=== PATIENT | male | born 1975 | race African-American/Black ===

== ENCOUNTER 2017-09-12 16:08 | Inpatient (IN) | payer BC ==
[~2017-09-12] VITALS: Ht 198.1 cm; Wt 102.5 kg
[2017-09-12 16:20] VITALS: BP 140/81
--- NOTE | 2017-09-12 16:25 | NUR ---
PT SENT TO LOBBY TO WAIT FOR BED/CHAIR
--- NOTE | 2017-09-12 16:55 | NUR ---
PATIENT AMB. TO BED#1
--- NOTE | 2017-09-12 17:05 | NUR ---
42 YO M BIB SELF W/ C/O RASH THAT GOT SEVERE Saturday09/07/17. PT IS VISITING FROM [place] FOR [place], ARRIVED Saturday09/04/17 AND HAS BEEN STAYING IN A HOTEL. PT REPORTS IT WAS DIAGNOSED FOOT AND MOUTH, BUT BLISTERS HAVE NOW OPENED AROUND NECK AND ARE "OOZING" AND HAS BEGAN GETTING "THE CHILLS". PT REPORTS HIS LEFT EAR IS NOW SWOLLEN OF THIS MORNING AND HE HAS ALSO NOTED BLISTERS/THE RASH IN HIS MOUTH AND THROAT. PT DENIES PAIN AT THIS TIME. PT A&O X 4. GCS 15. CMS INTACT. RESPIRATIONS EVEN AND UNLABORED AT THIS TIME. LUNG SOUNDS CLEAR BILATERALLY. PT DENIES SOB. ABD SOFT, NON-TENDER. BOWEL SOUNDS ACTIVE X 4 QUADS. GI AND WITHIN NORMAL LIMITS PER PT. ER MD GILLETTE NOTIFIED OF PT STATUS. SAFETY PRECAUTIONS IN PLACE. PT NEEDS MET AT THIS TIME. WILL CONTINUE TO MONITOR.
--- NOTE | 2017-09-12 17:39 | NUR ---
REMINDED AGAIN ABOUT THE TEMP 101
[2017-09-12] MEDS ORDERED: DEXAMETHASONE 10 MG/ML VIAL IVP ONE (17:40)
[2017-09-12] MEDS ORDERED: FAMOTIDINE 20 MG/2 ML VIAL IVP ONE (17:40)
[2017-09-12] MEDS ORDERED: diphenhydrAMINE 50 MG/ML VIAL IVP ONE (17:40)
[2017-09-12] MEDS ORDERED: ONDANSETRON 4 MG/2 ML VIAL IVP ONE (17:40)
[2017-09-12] MEDS ORDERED: ACYCLOVIR 500 MG in NACL 0.9% 100 ML IV ONE (17:40)
[2017-09-12] MEDS ORDERED: ACYCLOVIR 500 MG VIAL IV ONE (18:02)
--- NOTE | 2017-09-12 18:22 | NUR ---
xray at bedside
[2017-09-12 18:31] LABS: BASOPHILS % (AUTO) 0.1 % (0.0-2.0); EOSINOPHILS # (AUTO) 0.5 K/uL (0-0.4); EOSINOPHILS % (AUTO) 5.5 % (0.0-4.0); HEMATOCRIT 50.6 % (36-52); HEMOGLOBIN 17.1 g/dL (12.0-18.0); LYMPHOCYTES # (AUTO) 0.9 K/uL (2.0-11.5); MEAN CORPUSCULAR HEMOGLOBIN 29 pg (27-31); MEAN CORPUSCULAR HGB CONC 34 g/dL (33-37); MONOCYTES # (AUTO) 0.7 K/uL (0.8-1.0); MONOCYTES % (AUTO) 7.3 % (1.7-9.3); NEUTROPHILS # (AUTO) 7.3 K/uL (1.8-7.7); NEUTROPHILS % (AUTO) 77.8 % (42.2-75.2); PLATELET COUNT (AUTO) 218 K/uL (140-450); RED BLOOD CELL COUNT(AUTO) 5.88 MIL/uL (4.20-6.10); RED CELL DISTRIBUTION WIDTH 13.4 % (11.6-13.7); WHITE BLOOD COUNT (AUTO) 9.3 K/uL (4.8-10.8)
--- NOTE | 2017-09-12 18:33 | NUR ---
PT AWARE NEED URINE FOR COLLECTION
[2017-09-12 18:42] LABS: LYMPHOCYTES % (AUTO) 9.3 % (20.5-51.1)
[2017-09-12] MEDS ORDERED: ACETAMINOPHEN 325 MG TAB ONE (18:56)
--- NOTE | 2017-09-12 18:58 | NUR ---
TALKED TO MADE AWARE HE WANTS TO TALK TO HIM AGAIN, REMINDED TEMP 101 WITH ORDER TYLENOL 650 NOW
[2017-09-12 19:00] LABS: ANION GAP 12.8 (8-16); CARBON DIOXIDE 29.5 mmol/L (21-32); CREATININE 1.6 mg/dL (0.7-1.3); POTASSIUM 4.3 mmol/L (3.5-5.1)
[2017-09-12] MEDS ORDERED: ACETAMINOPHEN 325 MG TAB PO ONE (19:00)
[2017-09-12 19:04] LABS: ALBUMIN 3.4 g/dL (3.4-5.0); TOTAL BILIRUBIN 0.7 mg/dL (0.0-1.0)
[2017-09-12 19:15] LABS: CREATINE KINASE MB 0.5 ng/mL (0-3.6)
[2017-09-12 19:25] LABS: PROTHROMBIN TIME 12.1 secs (10.8-13.4)
--- NOTE | 2017-09-12 19:25 | NUR ---
RECEIVED PT FROM ER VIA GURNEY,PT AMBULATED WITH STEADY GAIT.NO SOB NOTED ON ROOM AIR.PT ALERT AND ORIENTED X4.MED SURG.RASHES ALL OVER THE BODY NOTED W/SLIGHT DRAINAGE TO NECK AREA.ABD SOFT.NON DISTENDED.NO N/V.DENIES PAIN.
--- NOTE | 2017-09-12 19:25 | NUR ---
Patient will be admitted to care of CHAVO Last. Admited to [facility]. Will go to room ICU 5. Belongings list completed. Pt tolerated transition well.
[2017-09-12] MEDS ORDERED: ONDANSETRON 4 MG/2 ML VIAL IVP PRN (19:40)
[2017-09-12] MEDS ORDERED: LORazepam 2 MG/ML VIAL IVP PRN (19:40)
[2017-09-12] MEDS ORDERED: DEXT 5% /NACL 0.9% 1,000 ML IV SCH (19:40)
[2017-09-12] MEDS ORDERED: HYDROcodone/APAP 5/325 MG 1 TAB TAB PO PRN (19:40)
[2017-09-12] MEDS ORDERED: MORPHINE SULFATE 4 MG/ML SYR IVP PRN (19:40)
[2017-09-12] MEDS ORDERED: ACETAMINOPHEN 325 MG TAB PO PRN (19:40)
[2017-09-12 20:00] VITALS: BP 129/70
[2017-09-12] MEDS: ACYCLOVIR 500 MG in NACL 0.9% 100 ML IV SCH (21:00)
[2017-09-12 21:32] LABS: APPEARANCE,URINE CLEAR (CLEAR); BILIRUBIN,URINE 1+ (NEGATIVE); BLOOD, URINE NEGATIVE (NEGATIVE); COLOR,URINE YELLOW (YELLOW); LEUKOCYTE ESTERASE ,URINE NEGATIVE (NEGATIVE); NITRITE, URINE NEGATIVE (NEGATIVE); UGLUCOSE NEGATIVE (NEGATIVE)
[2017-09-12 21:43] LABS: RBC,URINE 0-5 (RARE) /HPF (0-5); WBC,URINE 0-5 (RARE) /HPF (0-5)
[2017-09-12] MEDS: methylPREDNISolone SS 40 MG/ML VIAL IVP SCH (21:48)
[2017-09-12] MEDS: DEXT 5% /NACL 0.9% 1,000 ML IV SCH (21:48)
--- NOTE | 2017-09-12 21:50 | NUR ---
PHONE CALL TO PHARMACY RE; ZOVIRAX 2100 DOSE;PT GIVEN ZOVIRAX FROM ER AT 1844; PHARMACIST SAID TO NOTIFY MD.PHONE CALL MADE TO DR KEYANA MD SAID NOT TO GIVE THE 2100 DOSE. ALSO PT WANTS TO TALK TO DR RIDLEY BEFORE HE WILL LET RN ADMINISTER MEDS; PHONE GIVEN TO PT.
[2017-09-13] VITALS: BP 131/69
[2017-09-13] MEDS ORDERED: diphenhydrAMINE 50 MG/ML VIAL IVP SCH
--- NOTE | 2017-09-13 | NUR ---
pt still awake.no sob noted.no c/o pain made.
[2017-09-13] MEDS ORDERED: ACYCLOVIR 500 MG VIAL IV ONE (01:50)
--- NOTE | 2017-09-13 02:00 | NUR ---
PT ASLEEP;TOLERATING ROOM AIR.NO SOB NOTED.NO S/SX OF PAIN NOTED.WILL CONTINUE TO MONITOR PT.
[2017-09-13 04:00] VITALS: BP 122/63
--- NOTE | 2017-09-13 04:10 | NUR ---
PTS CONDITION REMAINS UNCHANGED.NOT IN ANY DISTRESS.NO S/SX OF PAIN NOTED
[2017-09-13] MEDS: ACYCLOVIR 500 MG in NACL 0.9% 100 ML IV SCH ×2 (04:28→13:42)
[2017-09-13] MEDS: diphenhydrAMINE 50 MG/ML VIAL IVP PRN ×2 (04:35→12:26)
--- NOTE | 2017-09-13 04:35 | NUR ---
PT C/O ITCHINESS; BENADRYL GIVEN ORDERED.
[2017-09-13] MEDS: DEXT 5% /NACL 0.9% 1,000 ML IV SCH ×2 (05:40→15:40)
[2017-09-13 06:23] LABS: HEPATITIS A ANTIBODY IGM Negative (Negative); HEPATITIS B CORE AB TOTAL Negative (Negative); HEPATITIS B SURFACE ANTIBODY Non Reactive (.); HEPATITIS B SURFACE ANTIGEN Negative (Negative)
[2017-09-13 06:47] LABS: EOSINOPHILS # (AUTO) 0.4 K/uL (0-0.4); EOSINOPHILS % (AUTO) 3.7 % (0.0-4.0); HEMATOCRIT 45.4 % (36-52); HEMOGLOBIN 15.4 g/dL (12.0-18.0); LYMPHOCYTES # (AUTO) 0.7 K/uL (2.0-11.5); LYMPHOCYTES % (AUTO) 6.8 % (20.5-51.1); MEAN CORPUSCULAR HEMOGLOBIN 29 pg (27-31); MEAN CORPUSCULAR HGB CONC 34 g/dL (33-37); MEAN CORPUSCULAR VOLUME 86.3 fL (80-94); MONOCYTES # (AUTO) 0.3 K/uL (0.8-1.0); MONOCYTES % (AUTO) 3.4 % (1.7-9.3); NEUTROPHILS # (AUTO) 8.2 K/uL (1.8-7.7); NEUTROPHILS % (AUTO) 86.1 % (42.2-75.2); PLATELET COUNT (AUTO) 201 K/uL (140-450); RED BLOOD CELL COUNT(AUTO) 5.26 MIL/uL (4.20-6.10); RED CELL DISTRIBUTION WIDTH 13.5 % (11.6-13.7); WHITE BLOOD COUNT (AUTO) 9.6 K/uL (4.8-10.8)
[2017-09-13 08:00] VITALS: BP 138/79
[2017-09-13] MEDS: methylPREDNISolone SS 40 MG/ML VIAL IVP SCH (08:26)
[2017-09-13] MEDS: FAMOTIDINE 20 MG/2 ML VIAL IV SCH ×2 (08:26→21:21)
[2017-09-13 08:51] LABS: ALBUMIN 3.1 g/dL (3.4-5.0); ANION GAP 14.7 (8-16); CARBON DIOXIDE 25.7 mmol/L (21-32); CREATININE 1.5 mg/dL (0.7-1.3); POTASSIUM 4.4 mmol/L (3.5-5.1); TOTAL BILIRUBIN 0.5 mg/dL (0.0-1.0)
--- NOTE | 2017-09-13 09:40 | NUR ---
RECEIVED PT REPORT FROM ICU NURSE MELLO. PT IS AWAKE, ALERT, OX4. AMBULATORY. MED-SURG. CC:RASHES OVER ENTIRE BODY. PIC TAKEN IN ICU. IV NOTED TO THE LEFT AC, 20G, ASYMPTOMATIC, INFUSING WELL. VITALS SIGNS TAKEN. DENIES PAIN, NAUSEA AND VOMITING AT THIS TIME. ORIENTED PT TO THE ROOM. CALL LIGHT WITHIN REACH. WILL CONTINUE TO MONITOR.
--- NOTE | 2017-09-13 10:20 | NUR ---
PATIENT HAS BEEN SCREENED AND CATEGORIZED LOW NUTRITION RISK. PATIENT WILL BE SEEN WITHIN 7 DAYS OF ADMISSION. 09/19/[address]
--- NOTE | 2017-09-13 11:30 | NUR ---
DR KEYANA Vasquez HAS SEE THE PT.
--- NOTE | 2017-09-13 11:40 | NUR ---
TOOK PT TO SHOWER. IV HEPLOCKED AND COVERED WITH PLASTIC BAG.
--- NOTE | 2017-09-13 12:25 | NUR ---
PT CAME OUT OF SHOWER, REQUESTED BENADRYL BECAUSE OF ITCHING. WILL ADMINISTER.
[2017-09-13 12:30] VITALS: BP 104/75
--- NOTE | 2017-09-13 14:31 | NUR ---
CM NOTE PER OUTSOLE BEVELER TRINA, PATIENT HAS [facility], PENDING REF# [id number], AND TO SEND REVIEWS TO [phone] PH# [phone]. INITIAL REVIEW FAXED TO [facility] [phone], PENDING REF# [id number], PH# [phone].
--- NOTE | 2017-09-13 15:50 | NUR ---
DR REYES HAS SEEN THE PT. KIDNEY SPECIALIST.
[2017-09-13 16:00] VITALS: BP 130/66
--- NOTE | 2017-09-13 16:00 | NUR ---
VITALS TAKEN. NO S/S OF ACUTE DISTRESS.
--- NOTE | 2017-09-13 19:35 | NUR ---
ENDORSED PT TO NEEDLE POLISHER NURSE. PT IN STABLE CONDITION.
--- NOTE | 2017-09-13 19:36 | NUR ---
RECD. RESTING IN BED, AWAKE, A/OX4, RESPIRATION EVEN AND UNLABORED. NOTED RASHES ALL OVER THE BODY. NO ITCHINESS NOTED. IV OF D5NS AT 100 ML/HR INFUSING, LEFT AC G22. PLAN OF CARE FOR THE SHIFT DISCUSSED. VERBALIZED UNDERSTANDING. WAITING FOR DR. ROBERTO. DENIES PAIN 0/10.
[2017-09-13 20:00] VITALS: BP 126/83
--- NOTE | 2017-09-13 20:00 | NUR ---
Patient's Plan of Care was discussed and reviewed with BANANA EXPERT: BREANNA ROOT
--- NOTE | 2017-09-13 21:20 | NUR ---
DR. ROBERTO CAME AND SPOKE WITH PATIENT. DISCONTINUED ZOVIRAXM AND SOLU-MEDROL. ORDERED HIV TEST.
--- NOTE | 2017-09-13 23:00 | NUR ---
COMPLAINT OF FEELING OF HEAVINESS AT THE LEFT ARM, SEEMS GETTING BIGGER, CHECKED IV, STILL FLUSHING WELL. REQUESTED TO BE DISCONNECTED FOR A WHILE TO REST ARM.
[2017-09-14] VITALS: BP 107/53
--- NOTE | 2017-09-14 | NUR ---
SLEEPING COMFORTABLY IN BED.
[2017-09-14] MEDS: DEXT 5% /NACL 0.9% 1,000 ML IV SCH (01:40)
[2017-09-14 04:00] VITALS: BP 116/68
--- NOTE | 2017-09-14 06:25 | NUR ---
CONSENT SIGNED FOR HIV TEST. INFORM PRODUCT INSPECTION COORDINATOR SKIP, WILL COME BACK TO DO TEST.
--- NOTE | 2017-09-14 07:20 | NUR ---
SITTING IN BED, NO DISTRESS NOTED. CONDITION REMAIN STABLE. ENDORSED TO AM NURSES FOR CONTINUITY OF CARE.
--- NOTE | 2017-09-14 07:21 | NUR ---
RECEIVED REPORT FROM SUBSTATION ENGINEER NURSE BREANNA AT BEDSIDE FOR CONTINUITY OF CARE. PT IS AWAKE AND ORIENTED X4. INTRODUCED SELF AND UPDATED BOARD. PT IS SITTING IN BED WATCHING TV. DENIES PAIN. IV TO L AC 20G INTACT. NO SIGNS OF DISTRESS. BED IN LOW POSITION, WHEELS LOCKED, CALL LIGHT WITHIN REACH. WILL CONTINUE TO MONITOR.
[2017-09-14 07:36] LABS: BASOPHILS % (AUTO) 0.1 % (0.0-2.0); EOSINOPHILS # (AUTO) 0.9 K/uL (0-0.4); EOSINOPHILS % (AUTO) 6.4 % (0.0-4.0); HEMATOCRIT 39.2 % (36-52); LYMPHOCYTES % (AUTO) 7.1 % (20.5-51.1); MEAN CORPUSCULAR HEMOGLOBIN 29 pg (27-31); MEAN CORPUSCULAR HGB CONC 33 g/dL (33-37); MEAN CORPUSCULAR VOLUME 86.5 fL (80-94); MONOCYTES % (AUTO) 6.5 % (1.7-9.3); NEUTROPHILS # (AUTO) 11.7 K/uL (1.8-7.7); NEUTROPHILS % (AUTO) 79.9 % (42.2-75.2); PLATELET COUNT (AUTO) 185 K/uL (140-450); RED BLOOD CELL COUNT(AUTO) 4.54 MIL/uL (4.20-6.10); RED CELL DISTRIBUTION WIDTH 13.4 % (11.6-13.7); WHITE BLOOD COUNT (AUTO) 14.6 K/uL (4.8-10.8)
[2017-09-14 07:55] LABS: ANION GAP 11.6 (8-16); CARBON DIOXIDE 28.1 mmol/L (21-32); CREATININE 1.3 mg/dL (0.7-1.3); POTASSIUM 4.7 mmol/L (3.5-5.1)
[2017-09-14 08:00] VITALS: BP 137/72
[2017-09-14 08:01] LABS: MAGNESIUM 2.2 mg/dL (1.8-2.4); PHOSPHORUS 3.7 mg/dL (2.5-4.9)
[2017-09-14] MEDS: FAMOTIDINE 20 MG/2 ML VIAL IV SCH (09:37)
[2017-09-14] MEDS ORDERED: FAMO-90 PO (11:18)
[2017-09-14] MEDS ORDERED: BEN50 PO (11:18)
--- NOTE | 2017-09-14 13:07 | NUR ---
GAVE D/C FORMS,INSTRUCTIONS, LABS, DR'S NOTES, COPY OF TESTS, AND MEDICAL RECORDS NUMBER. PT VERBALIZED UNDERSTANDING AND SIGNED FORMS. D/C IV TO L AC 20G. IV CATHETER TIP INTACT. APPLIED DRESSING AND PRESSURE TO SITE. NO BLEEDING NOTED. REMOVED ID BAND.
--- NOTE | 2017-09-14 15:30 | NUR ---
PT D/C TO GO HOME. REMOVED ID BAND. PT CHANGED IN OWN CLOTHES AND LEFT WITH ALL PERSONAL BELONGINGS. LEFT UNIT VIA AMBULATION WITH STEADY GAIT ACCOMPANIED BY RN. LEFT IN STABLE CONDITION.
--- NOTE | 2017-09-16 15:04 | NUR ---
CM NOTE RECEIVED VM MESSAGE REGARDING PATIENT'S ADMISSION BUT CALLER DID NOT MENTION HER NAME REQUESTING A CALL BACK TO [facility] PH# [phone]. CALLED BACK THAT NUMBER AND LEFT A VM MESSAGE. DISCHARGE SUMMARY FAXED TO [facility] [phone] # [phone].
== END 2017-09-14 15:30 | disposition home or self-care (01) | DRG 607 ==
LOC: MED 16:08 → MIC 18:58 → MTU 09-13 07:39
PROVIDERS: ADMIT Preventive Medicine Preventive Medicine/Occupational Environmental Medicine; ATTEND Preventive Medicine Preventive Medicine/Occupational Environmental Medicine
DX: R21 Rash and other nonspecific skin eruption (principal); N17.9 Acute kidney failure, unspecified; D72.829 Elevated white blood cell count, unspecified; R50.9 Fever, unspecified; T78.40XA Allergy, unspecified, initial encounter; X58.XXXA Exposure to other specified factors, initial encounter; T38.0X5A Adverse effect of glucocorticoids and synthetic analogues, initial encounter; R79.1 Abnormal coagulation profile; Z88.0 Allergy status to penicillin; Y92.89 Other specified places as the place of occurrence of the external cause
CPT/HCPCS: 36415; 71045; 76770; 80048; 80053; 81001; 82150; 82550; 82553; 82785; 83605; 83690; 83735; 84100; 84484; 85025; 85379; 85610; 85651; 85730; 86140; 86694; 86704; 86706; 86708; 86709; 86803; 86886; 86900; 86901; 87040; 87081; 87252; 87340; 87529; 87804; 93005; J0133; J1100; J1200; J2405; J2920; J3490; J7042; Q0092